=== PATIENT | female | born 2000 | race Caucasian/White ===

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

== ENCOUNTER 2019-05-14 20:39 | Emergency (ER) | payer OTHER ==
[~2019-05-14] VITALS: Ht 162.6 cm; Wt 131.5 kg
[2019-05-14 20:56] VITALS: Ht 162.6 cm; Wt 131.5 kg
[2019-05-14 23:53] VITALS: BP 151/69
== END 2019-05-14 23:53 | disposition home or self-care (01) ==
LOC: ED 20:39
DX: S20.211A Contusion of right front wall of thorax, initial encounter (principal); R10.30 Lower abdominal pain, unspecified; M25.561 Pain in right knee; J45.909 Unspecified asthma, uncomplicated; Z88.0 Allergy status to penicillin; V43.52XA Car driver injured in collision with other type car in traffic accident, initial encounter; Y93.I9 Activity, other involving external motion; Y92.488 Other paved roadways as the place of occurrence of the external cause; Y99.8 Other external cause status

== ENCOUNTER 2019-05-15 19:28 | Emergency (ER) | payer OTHER ==
[~2019-05-15] VITALS: Ht 162.6 cm; Wt 94.3 kg
[2019-05-15 19:40] VITALS: Ht 162.6 cm; Wt 94.3 kg
[2019-05-15 22:30] VITALS: BP 139/89
== END 2019-05-15 22:30 | disposition home or self-care (01) ==
LOC: ED 19:28
DX: S39.81XA Other specified injuries of abdomen, initial encounter (principal); V49.69XA Unspecified car occupant injured in collision with other motor vehicles in traffic accident, initial encounter; J45.909 Unspecified asthma, uncomplicated; Z88.0 Allergy status to penicillin; Y93.I9 Activity, other involving external motion; Y92.413 State road as the place of occurrence of the external cause; Y99.8 Other external cause status